=== PATIENT | female | born 1935 | race American Indian/Alaskan Native ===

== ENCOUNTER 2017-02-27 10:07 | Outpatient (CLI) | payer MEDICARE ==
--- NOTE | 2017-02-27 14:18 | Mammography Report ---
BILATERAL DIGITAL SCREENING MAMMOGRAM with CAD: 02/27/17 CLINICAL: Routine screening. COMPARISON:01/05/16 FINDINGS: The breasts are almost entirely fatty. A right retroareolar asymmetry on the CC view requires additional imaging.No architectural distortion or suspicious calcifications.The left breast is negative. IMPRESSION: Right asymmetry requiring further workup. BI-RADS CATEGORY: 0 -- Additional Imaging Evaluation Required RECOMMENDATION: Recall for right lateralmedial and spot compression CC views and right breast ultrasound if needed. ACR BI-RADS MAMMOGRAPHIC CODES: 0 = Needs additional imaging evaluation; 1 = Negative; 2 = Benign; 3 = Probably benign; 4 = Suspicious; 5 = Malignant; 6 = Known biopsy-proven malignancy COMMENT: 1. Dense breast tissue, i.e., adenosis, fibrocystic changes, etc., may obscure an underlying neoplasm. 2. Approximately 10% of cancers are not detected with mammography. 3. A negative mammography report should not delay biopsy if a clinically suspicious mass is present. COMMENT: Patient follow-up letters are generated via our [employer] application.
== END 2017-02-27 10:08 | disposition home or self-care (01) ==
LOC: SPVWC 10:07
PROVIDERS: ATTEND Internal Medicine
DX: Z12.31 Encounter for screening mammogram for malignant neoplasm of breast (principal)
CPT/HCPCS: 77067; G0202

== ENCOUNTER 2017-03-10 09:54 | Outpatient (CLI) | payer MEDICARE ==
--- NOTE | 2017-03-10 10:53 | Mammography Report ---
RIGHT DIGITAL DIAGNOSTIC MAMMOGRAM with CAD and RIGHT BREAST ULTRASOUND: 03/10/17 CLINICAL: Recall for asymmetry. COMPARISON:02/27/17screening FINDINGS: Lateralmedial and spot compression CC views were performed. An oval asymmetry with an indistinct margin persists on a spot view. Ultrasound of the right breast (including all four quadrants and the retroareolar area) was performed and demonstrated normal fibroglandular and fatty structures. No mass, cyst or shadowing. IMPRESSION: Probably benign right asymmetry identified on only one view of the mammogram and negative ultrasound . BI-RADS CATEGORY: 3 -- Probably Benign RECOMMENDATION: 6 month followup right mammogram and ultrasound if needed. ACR BI-RADS MAMMOGRAPHIC CODES: 0 = Needs additional imaging evaluation; 1 = Negative; 2 = Benign; 3 = Probably benign; 4 = Suspicious; 5 = Malignant; 6 = Known biopsy-proven malignancy COMMENT: 1. Dense breast tissue, i.e., adenosis, fibrocystic changes, etc., may obscure an underlying neoplasm. 2. Approximately 10% of cancers are not detected with mammography. 3. A negative mammography report should not delay biopsy if a clinically suspicious mass is present. COMMENT: Patient follow-up letters are generated via our [employer] application.
--- NOTE | 2017-03-10 15:16 | Ultrasound Report ---
RIGHT DIGITAL DIAGNOSTIC MAMMOGRAM with CAD and RIGHT BREAST ULTRASOUND: 03/10/17 CLINICAL: Recall for asymmetry. COMPARISON:02/27/17 screening mammogram FINDINGS: Lateralmedial and spot compression CC views were performed. An oval asymmetry with an indistinct margin persists on a spot view. Ultrasound of the right breast (including all four quadrants and the retroareolar area) was performed and demonstrated normal fibroglandular and fatty structures. No mass, cyst or shadowing. IMPRESSION: Probably benign right asymmetry identified on only one view of the mammogram and negative ultrasound . BI-RADS CATEGORY: 3 -- Probably Benign RECOMMENDATION: 6 month followup right mammogram and ultrasound if needed.
== END 2017-03-10 09:55 | disposition home or self-care (01) ==
LOC: SPVWC 09:54
PROVIDERS: ATTEND Internal Medicine
DX: N64.89 Other specified disorders of breast (principal); R92.8 Other abnormal and inconclusive findings on diagnostic imaging of breast
CPT/HCPCS: 76641; G0206

== ENCOUNTER 2017-08-15 10:09 | Outpatient (CLI) | payer MEDICARE ==
--- NOTE | 2017-08-15 14:09 | Ultrasound Report ---
RIGHT DIGITAL DIAGNOSTIC MAMMOGRAM with CAD: 08/15/17 10:09:00 CLINICAL: Six month followup asymmetry COMPARISON:03/10/17 and 02/27/17 FINDINGS: Routine views plus spot magnification CC and lateralmedial views were performed. An irregular 4-5 mm asymmetry with ill-defined margins is identified on both views. There is partial effacement on the CC view. No architectural distortion or suspicious calcifications. Ultrasound of the upper inner right breast was performed and demonstrated normal structures with no mass, cyst or shadowing to correlate with the mammographic density. IMPRESSION: A suspicious 4-5 mm mammographic focal asymmetry with a negative ultrasound. Recommend right stereotactic breast biopsy. BI-RADS CATEGORY: 4--Suspicious I discussed the findings and the recommendation for a right stereotactically guided needle core biopsy with the patient at the time of the examination. We also discussed the option of breast MRI for further workup. I recommend stereotactic biopsy and breast MRI to follow if the stereotactic biopsy is unsuccessful. ACR BI-RADS MAMMOGRAPHIC CODES: 0 = Needs additional imaging evaluation; 1 = Negative; 2 = Benign; 3 = Probably benign; 4 = Suspicious; 5 = Malignant; 6 = Known biopsy-proven malignancy COMMENT: 1. Dense breast tissue, i.e., adenosis, fibrocystic changes, etc., may obscure an underlying neoplasm. 2. Approximately 10% of cancers are not detected with mammography. 3. A negative mammography report should not delay biopsy if a clinically suspicious mass is present. COMMENT: Patient follow-up letters are generated by our [employer] application.
== END 2017-08-15 10:10 | disposition home or self-care (01) ==
LOC: EDBD → SPVWC 10:09
PROVIDERS: ATTEND Internal Medicine
DX: R92.8 Other abnormal and inconclusive findings on diagnostic imaging of breast (principal)

== ENCOUNTER 2018-07-25 08:45 | Outpatient (CLI) | payer MEDICARE ==
--- NOTE | 2018-07-25 12:05 | Ultrasound Report ---
ABDOMINAL ULTRASOUND: 07/25/18 08:45:00 CLINICAL: Abdominal pain. FINDINGS: High-resolution ultrasound demonstrates a normal liver with normal size, contour and echogenicity. No liver mass or nodularity. Normal hepatic vasculature and inferior vena cava. The gallbladder is normally distended and contains echogenic non-shadowing material which appears to move with patient position. No gallbladder tenderness during the exam. The gallbladder wall measures 1.8 mm. Normal bile ducts. The common bile duct measures 2.5 mm diameter. The pancreas is well imaged and demonstrates increased echogenicity consistent with fatty infiltration. The pancreas is otherwise normal. Normal abdominal aorta. A normal spleen measures 6.1 cm. Normal kidneys with normal echogenicity and normal non-dilated renal collecting systems and ureters. The right kidney measures 9.7 x 4.8 x 4.6 cm. The left kidney measures 8.6 x 5.2 x 4.9 cm. No renal mass or calculus. No ascites or mass. IMPRESSION: 1. Gallbladder sludge and otherwise normal gallbladder and biliary tract. 2. Fatty infiltration of the pancreas. No signs of acute or chronic pancreatitis. 3. The rest of the abdomen is normal.
== END 2018-07-25 08:46 | disposition home or self-care (01) ==
LOC: SPVWC 08:45 → EDBD 08:45 → SPVWC 08:46
PROVIDERS: ATTEND Internal Medicine
DX: K83.8 Other specified diseases of biliary tract (principal); M62.89 Other specified disorders of muscle
CPT/HCPCS: 76700